=== PATIENT | female | born 1980 | race Caucasian/White ===

== ENCOUNTER 2022-04-09 06:10 | Emergency (ER) | payer SELFPAY ==
[~2022-04-09] VITALS: Ht 167.6 cm; Wt 55.3 kg
[~2022-04-09 06:10] MED LIST: NO MEDS
--- NOTE | 2022-04-09 06:19 | NUR ---
KEMAL C/O DRINKING TO MUCH ALCOHOL LAST NIGHT FOR BIRTHDAY. PT A/OX4. TOLERATING R/A WELL WITH NO SOB. CONNECTED PT TO POX AND MONITOR. SAFETY MEASURES IN PLACE.
--- NOTE | 2022-04-09 06:38 | NUR ---
IV ESTABLISHED RAC #20G S/L BLOOD COLLECTED AND SENT TO LAB.
[2022-04-09] MEDS: IV NS 0.9% 1,000 ML BAG IV ONE (06:39)
--- NOTE | 2022-04-09 06:49 | NUR ---
OFFERED PT URINE CUP; NOT ABLE TO URINATE AT THIS TIME. WILL TRY AGAIN LATER.
[2022-04-09 07:04] LABS: BASOPHILS % (AUTO) 0.1 % (0.0-2.0); EOSINOPHILS % (AUTO) 0.1 % (0.0-6.0); HEMATOCRIT 42 % (33-45); HEMOGLOBIN 14.2 g/dL (11.5-14.8); LYMPHOCYTES # (AUTO) 0.8 K/uL (0.8-4.8); LYMPHOCYTES % (AUTO) 10.2 % (20.0-44.0); MEAN CORPUSCULAR HGB CONC 34 g/dl (31.0-36.0); MEAN CORPUSCULAR VOLUME 98 fL (82-100); MONOCYTES # (AUTO) 0.2 K/uL (0.1-1.30); NEUTROPHILS # (AUTO) 7.1 K/uL (1.8-8.9); NEUTROPHILS % (AUTO) 87.6 % (43.0-81.0); PLATELET COUNT (AUTO) 202 K/uL (150-450); RED BLOOD CELL COUNT(AUTO) 4.22 MIL/uL (4.0-5.2); WHITE BLOOD COUNT (AUTO) 8.1 K/uL (4.3-11.0)
[2022-04-09 07:11] LABS: ALBUMIN 3.9 g/dL (3.4-5.0); BILIRUBIN,DIRECT 0.1 mg/dL (0.0-0.2); BILIRUBIN,TOTAL 0.4 mg/dL (0.2-1.0); CALCIUM, SERUM 8.7 mg/dL (8.5-10.1); CREATININE 0.8 mg/dL (0.6-1.3); POTASSIUM 3.7 mmol/L (3.5-5.1); TOTAL PROTEIN, SERUM 7.4 g/dL (6.4-8.2)
--- NOTE | 2022-04-09 07:19 | NUR ---
REPORT GIVEN TO ALISON MCKENNA
[2022-04-09] MEDS ORDERED: ONDA4TAB5 PO (07:21)
--- NOTE | 2022-04-09 07:25 | NUR ---
RECIVE PT FROM [facility] NAUSEA DR. FOZIA HANNON AWARE ABDOMINE SOFT
[2022-04-09] MEDS: ONDANSETRON HCL/PF - ER 4 MG/2 ML VIAL IV ONE (07:32)
[2022-04-09] MEDS ORDERED: ONDANSETRON HCL/PF 4 MG/2 ML VIAL ONE (07:32)
--- NOTE | 2022-04-09 07:41 | NUR ---
ZOFRAN 4MG IVP GIVEN
--- NOTE | 2022-04-09 07:52 | NUR ---
Patient discharged to home in stable condition. Written and verbal after care instructions given. Patient verbalizes understanding of instruction.
--- NOTE | 2022-04-09 07:52 | NUR ---
D/C HOME WITH RX AND FALLOW UP CARE
[2022-04-09 08:00] VITALS: BP 103/73
[2022-04-09 08:13] LABS: BILIRUBIN,URINE NEGATIVE (NEGATIVE); COLOR,URINE YELLOW (YELLOW); LEUKOCYTE ESTERASE ,URINE NEGATIVE (NEGATIVE); NITRITE, URINE NEGATIVE (NEGATIVE); PROTEIN,URINE NEGATIVE (NEGATIVE); UGLUCOSE NEGATIVE (NEGATIVE); UROBILINOGEN,URINE 0.2 EU/dL (0.2)
[2022-04-09 09:20] LABS: BACTERIA,URINE Moderate /HPF (None Seen); RBC,URINE 0-2 /HPF (0-2); SQUAMOUS EPITHELIAL CELL,UR Moderate /HPF (None Seen)
== END 2022-04-09 08:00 | disposition home or self-care (01) ==
LOC: ER 06:14
DX: F10.129 Alcohol abuse with intoxication, unspecified (principal); E86.0 Dehydration; Y90.1 Blood alcohol level of 20-39 mg/100 ml
CPT/HCPCS: 99283; 96374; 96361; 85025; 80048; 87086; 80076; 84703; 81001; 36415; 80143; 80320; 80307; J2405 ×2; J7030; G0480